=== PATIENT | female | born 1990 | race Caucasian/White ===

== ENCOUNTER 2018-10-24 13:39 | Emergency (ER) | payer SELFPAY ==
[~2018-10-24] VITALS: Ht 167.6 cm; Wt 133.8 kg
[2018-10-24 13:43] VITALS: BP 149/92
[2018-10-24] MEDS ORDERED: PRED-220 PO (13:59)
[2018-10-24] MEDS ORDERED: DIPH25CA58 PO (13:59)
[2018-10-24] MEDS ORDERED: FAMO20TA5 PO (13:59)
--- NOTE | 2018-10-24 13:59 | PHYS DOC ---
Past Medical History Past Medical History: No Pertinent History Past Surgical History: Tonsillectomy Additional Information: 2 TO 3 CIGARETTES A DAY Alcohol Use: None Drug Use: None Adult General Chief Complaint Chief Complaint: SKIN RASH/ABSCESS HPI HPI Patient is a 28 year old female with no significant medical history who presents to the ED today complaining of a nonpruritic rash from head to toe that began 2 days ago. Patient denies any new soaps, new laundry detergents, or getting in contact with anything specifically that could've caused the rash. Review of Systems Review of Systems Constitutional: Denies fever or chills [] Musculoskeletal: Denies back pain or joint pain [] Integument: Reports rash Neurologic: Denies headache, focal weakness or sensory changes [] All other systems were reviewed and found to be within normal limits, except as documented in this note. Allergies Allergies Allergies Coded Allergies Type Severity Reaction Last Updated Verified amoxicillin Allergy Intermediate 10/03/13 Yes Physical Exam Physical Exam Constitutional: Well developed, well nourished, no acute distress, non-toxic appearance. [] Skin: Mild amount of erythematous macular rash throughout patient's body. Back: No tenderness, no CVA tenderness. [] Extremities: No tenderness, no cyanosis, no clubbing, ROM intact, no edema. [] Neurologic: Alert and oriented X 3, normal motor function, normal sensory function, no focal deficits noted. [] Psychologic: Affect normal, judgement normal, mood normal. [] Current Patient Data Vital Signs Vital Signs Date Time Temp Pulse Resp B/P (MAP) Pulse Ox O2 Delivery O2 Flow Rate FiO2 10/24/18 13:43 98.3 75 18 149/92 (111) 96 Room Air 98.3 EKG EKG [] Radiology/Procedures Radiology/Procedures [] Course & Med Decision Making Course & Med Decision Making Pertinent Labs and Imaging studies reviewed. (See chart for details) This is a 28-year-old female patient presenting to the ED today with contact dermatitis rash, unknown cause. Rash scattered throughout the entire body including face. Patient was discharged on prednisone, Benadryl and famotidine. Follow-up with [facility] a PCP in 1-2 weeks. Dragon Disclaimer Dragon Disclaimer This electronic medical record was generated, in whole or in part, using a voice recognition dictation system. Departure Departure Impression: Primary Impression: Contact dermatitis Disposition: HOME, SELF-CARE Condition: STABLE Referrals: NO PCP (PCP) ALPHONSE CRAWFORD MD follow up in 1-2 weeks Patient Instructions: Contact Dermatitis Additional Instructions: You were evaluated in the medicine for contact dermatitis rash, we put you on medications, take them as prescribed until completed. Follow-up with your own doctor or the provided [facility] in 1-2 weeks. Scripts Diphenhydramine Hcl (BENADRYL) 25 Mg Capsule 1 CAP PO Q6HRS PRN for RASH, #30 CAP 1 Refill Prov: LALITHA HENRY APRN 10/24/18 Famotidine (FAMOTIDINE) 20 Mg Tablet 20 MG PO DAILY, #7 TAB Prov: LALITHA HENRY APRN 10/24/18 Prednisone (PREDNISONE ) 10 Mg Tablet 10 MG PO UD for PREDNISONE TAPER, #39 TAB 0 Refills Take 3 tablets by mouth twice a day for 3 days, then take 2 tablets by mouth twice a day for 3 days, then take 1 tablet by mouth twice a day for 3 days, then take 1 tablet by mouth daily x 3 days, then stop. Prov: LALITHA HENRY APRN 10/24/18 Problem Qualifiers Primary Impression: Contact dermatitis Contact dermatitis type: unspecified Contact dermatitis trigger: unspecified trigger Qualified Codes: L25.9 - Unspecified contact dermatitis, unspecified cause LALITHA HENRY APRN October 24, 2018 13:59
== END 2018-10-24 14:05 | disposition home or self-care (01) ==
LOC: ER 13:39
DX: L25.9 Unspecified contact dermatitis, unspecified cause (principal); F17.210 Nicotine dependence, cigarettes, uncomplicated; Z90.89 Acquired absence of other organs; Z88.1 Allergy status to other antibiotic agents
CPT/HCPCS: 99283